=== PATIENT | female | born 1950 | race Caucasian/White ===

== ENCOUNTER → 2016-08-13 | Outpatient (CLI) | payer OTHER, MEDICARE ==
--- NOTE | 2016-08-13 18:29 | DX ---
DEXA Bone Mineral Densitometry Clinical Indications: Osteoporosis screening in a postmenopausal female . Followup low bone density. Comparison: December 2013, December 2011, May 2009 Technique: Bone Mineral Densitometry (BMD) by Dual Energy X-Ray Absorptiometry (DEXA) was performed u tilizing the [employer] scanner. The lumbar spine was evaluated in the AP projection. The bilate ral hips and left forearm were evaluated in the AP projection. Vertebral fracture assessment was also performed. AP Lumbar Spine: The L1, L2, L3 vertebral bodies were evaluated. BMD: 1.054 gm/cm2 T-score: -1.0 SD Z-score: 0.6 SD Significant decrease in bone density of 2.8% compared to the most recent prior study. AP Left Hip: Femoral neck. BMD: 0.681 gm/cm2 T-score: -2.6 SD Z-score: -1.0 SD There has been a significant decrease in bone density of 10.9% compared to the most recent study. AP Right Hip: Femoral neck. BMD: 0.743 gm/cm2 T-score: -2.1 SD Z-score: -0.5 SD A significant decrease in total bone density of 6.5% compared to the most recent previous study. AP Left Forearm, 08/04: BMD: 0.726 gm/cm2 T-score: -1.7 SD Z-score: -0.1 SD Not significantly changed. Vertebral Fracture Assessment: No significant fracture deformity. Conclusion: Considering the lowest measured site, the patient's bone density is low; osteoporotic (T score < -2.5). Significant decrease in bone density are seen involving the spine as well as both hips . The ten year risk for any major osteoporotic fracture is 14.4% and for a hip fracture is 3.4%. Any bone loss in this patient is probably related to aging or estrogen deficiency. Recommendations: To prevent osteoporosis and to promote bone density, consider the following recommen dations: 1. Pursue a regular regimen of weightbearing and muscle strengthening exercises. 2. Optimize daily calcium intake. 3. Check serum hydroxy vitamin D3 (normal >30ng/ml). 4. Ensure daily intake of vitamin D is 800 international units. 5. Consider follow-up DEXA scan in two years to assess the rate of bone loss in this patient. If sig nificant bone loss continues, initiation of therapy could be considered. 6. Consider excluding common secondary causes of bone loss.
== END ==
LOC: FIMAGING 13:49
PROVIDERS: ATTEND Internal Medicine Endocrinology, Diabetes & Metabolism
DX: Z13.820 Encounter for screening for osteoporosis (principal); M81.0 Age-related osteoporosis without current pathological fracture; M85.80 Other specified disorders of bone density and structure, unspecified site; Z78.0 Asymptomatic menopausal state

== ENCOUNTER 2017-04-07 07:49 | Inpatient (IN) | payer OTHER, MEDICARE ==
--- NOTE | 2017-03-15 10:15 | GHP ---
[f rep st] PREOP HISTORY AND PHYSICAL DATE OF ADMISSION: The patient will be an a.m. admission for surgery on April 07, 2017. PROBLEM: Left hip arthritis. HISTORY OF PRESENT ILLNESS: The patient is a 66-year-old woman admitted for a left total hip arthroplasty. She developed left thigh and hip pain in November of 2016. It is painful walking. Hip flexion is painful. She is having daily pain and night pain. Her activities are limited. She has been using ibuprofen every day. She has trouble putting her shoes and socks on the left foot. She is admitted for a left total hip arthroplasty. PAST MEDICAL HISTORY: A few years ago she had her parathyroid glands removed. No history of heart disease, stents, DVT, hepatitis, or sleep apnea. CURRENT MEDICATIONS: None. DRUG ALLERGIES: She is allergic to morphine and reacts with a rash. She also has a strong allergy to shellfish. Metal allergy: No. Latex allergy: Yes. SOCIAL HISTORY: The patient is . She is retired. She does not smoke cigarettes, and occasionally drinks wine. She does not have any other total joint replacements. No history of previous MRSA staph infections. FAMILY HISTORY: Unknown. PHYSICAL EXAMINATION: GENERAL: She is a healthy-appearing woman. Height 4 feet 11-1/4 inches. Weight 130 pounds. BMI 26. EYES: The conjunctivae and sclerae are clear. Pupils are round and reactive. MOUTH: Good oral hygiene. No loose teeth. CHEST: Clear. HEART: Regular rhythm, no murmurs. EXTREMITIES: Pertinent findings are limited to her left hip. She has full hip extension and 100 degrees of flexion. External rotation 20 degrees. Internal rotation 0 degrees. Abduction 20 degrees. IMAGING: Her films show degenerative arthritis of her left hip. Her right hip looks normal. IMPRESSION ON ADMISSION: Left hip advanced degenerative arthritis. PLAN: She will undergo a left total hip arthroplasty. The surgery has been described to her, including the risks, complications, expectations, and recovery time. I have specifically discussed with her the risk of dislocation, leg length inequality, infection, and sciatic nerve injury. She understands there is a small possibility of future revision surgery. All her questions have been answered, and she consents to surgery. She does not want to use oxycodone. I am not going to use the Betadine irrigation. I will not use the preoperative OxyContin. Copy requested to: GUILLERMO Hall #: [id number]/MODL MTDD
[~2017-04-07 07:49] MED LIST: ROPIVACAINE 0.2% 80 MG, EPINEPHrine 0.2 MG, KETOROLAC TROMETHAMINE 30 MG in BAG 0 ML IU ONE; TRANEXAMIC ACID 1 MG in NS 100 ML IV ONE; TRANEXAMIC ACID 1,200 MG in NS 100 ML IV ONE
[2017-04-07] MEDS ORDERED: ceFAZolin 1 GM/5 ML SYR ONE (08:02)
[2017-04-07] MEDS ORDERED: DEXAMETHASONE 4 MG/ML VIAL IVP ONE (08:13)
[2017-04-07] MEDS ORDERED: FAMOTIDINE 20 MG TAB PO ONE (08:13)
[2017-04-07] MEDS ORDERED: ceFAZolin 2 GM/DEXTROSE 100 ML IV ONE (08:13)
[2017-04-07] MEDS ORDERED: ACETAMINOPHEN 325 MG TAB PO ONE (08:13)
[2017-04-07] MEDS ORDERED: LR 1,000 ML IV ONE (08:14)
--- NOTE | 2017-04-07 08:54 | PDHPUP ---
History & Physical Update H&P update statement: This history and physical update is based on an assessment of the patient which was completed after admission or registration (within 24 hours), but prior to the surgery/procedure. H&P update: H&P reviewed & patient examined, no change in patient's condition since H&P completed
[2017-04-07] MEDS ORDERED: MIDAZOLAM 2 MG/2 ML VIAL IVP ONE (09:11)
--- NOTE | 2017-04-07 09:11 | PDANEPAE ---
ANE History of Present Illness 66 yo for jesse h/o HTN off meds now CAD by scan ANE Past Medical History - Cardiovascular History Hx Hypertension: No Hx Arrhythmias: No Hx Chest Pain: No Hx Coronary Artery / Peripheral Vascular Disease: No Hx CHF / Valvular Disease: No Hx Palpitations: No - Pulmonary History Hx Oxygen in Use at Home: No Hx Sleep Apnea: No Sleep Apnea Screening Result - Last Documented: Negative - Neurologic History Hx Cerebrovascular Accident: No Hx Seizures: No Hx Dementia: No - Endocrine History Hx Diabetes: No - Renal History Hx Renal Disorders: No - Liver History Hx Hepatic Disorders: No - Neurological & Psychiatric Hx Hx Neurological and Psychiatric Disorders: No - Cancer History Hx Cancer: Yes Cancer History Comment: squamous cell removal - Congenital Disorder History Hx Congenital Disorders: No - GI History Hx Gastrointestinal Disorders: No - Chronic Pain History Chronic Pain: No - Surgical History Prior Surgeries: hyperparathyroid removal 2012 ANE Review of Systems Review of Systems: - Exercise capacity METS (RN): 4 METS ANE Patient History - Allergies Allergies/Adverse Reactions: lidocaine Allergy (Intermediate, Verified 06/03/12 11:35) SITE RASH morphine Allergy (Intermediate, Verified 06/03/12 11:35) RED RASH/ ITCHING latex Allergy (Mild, Verified 06/03/12 11:35) Rash ALL VACCINES Allergy (Severe, Uncoded 06/03/12 11:35) THROAT CLOSES/THROATA AND MOUTH ITCHING/HIVES CAT Allergy (Severe, Uncoded 06/03/12 11:35) TROUBLE BREATHING SHELL FISH Allergy (Severe, Uncoded 06/03/12 11:35) Anaphylaxis NOVACAINE Allergy (Intermediate, Uncoded 06/03/12 11:35) SITE RASH ENVIRONMENTAL Allergy (Mild, Uncoded 06/03/12 11:35) NASAL CONGESTION HAND WIPES Allergy (Mild, Uncoded 06/03/12 11:35) Rash SENSITIVE TO PERFUMES AND PERFUMES Allergy (Mild, Uncoded 06/03/12 11:35) EYES ITCHY - Home Medications Home medications: home medication list seen and reviewed Home Medications: Aspirin EC [Aspirin EC 81 mg (*)] 81 mg PO DAILY 03/28/17 [Last Taken 03/31/17] CALCIUM CARBONATE [CALCIUM] 600 mg PO DAILY 03/28/17 [Last Taken 03/31/17] Cholecalciferol (Vitamin D3) [Vitamin D3] 5,000 unit PO DAILY 03/28/17 [Last Taken 03/31/17] Cyanocobalamin [Vitamin B12 (*)] 1,000 mcg PO DAILY 03/28/17 [Last Taken ] Herbals/Supplements -Info Only 1 ea PO DAILY 03/28/17 [Last Taken 03/31/17] Ketotifen Fumarate [Zaditor] 1 drop OP DAILY PRN 03/28/17 [Last Taken 04/07/17] Loratadine [Claritin 10 mg] 5 mg PO DAILY PRN 03/28/17 [Last Taken 03/17/17] MAGNESIUM [Magnesium Oxide 200 mg] 1 tab PO DAILY 03/28/17 [Last Taken 03/31/17] - NPO status NPO Since - Liquids (Date): 04/07/17 NPO Since - Liquids (Time): 06:00 NPO Since - Solids (Date): 04/06/17 NPO Since - Solids (Time): 20:00 - Smoking Hx Smoking Status: Former smoker - Family Anes Hx Family Hx Anesthesia Complications: none ANE Labs/Vital Signs - Vital Signs Blood Pressure: 164/100 Heart Rate: 86 Respiratory Rate: 16 O2 Sat (%): 96 Height: 4 ft 11 in Weight: 58.967 kg ANE Physical Exam - Airway Neck exam: FROM Mallampati Score: Class 2 - Pulmonary Pulmonary: no respiratory distress - Cardiovascular Cardiovascular: regular rate and rhythym - ASA Status ASA Status: II ANE Anesthesia Plan Anesthesia Plan: spinal
[2017-04-07] MEDS ORDERED: POVIDONE-IODINE 20 ML in SODIUM CL IRRIG SOLUTION 500 ML IRR ONE (09:30)
[2017-04-07] MEDS ORDERED: PROPOFOL/EMULSION 500 MG/50 ML BOTTLE IV ONE ×2 (09:35)
[2017-04-07] MEDS ORDERED: fentaNYL 100 MCG/2 ML INJ ONE (09:36)
[2017-04-07] MEDS ORDERED: PROPOFOL 200 MG/20 ML VIAL ONE (10:41)
[2017-04-07] MEDS ORDERED: POLYETHYLENE GLYCOL 3350 17 GM PKT PO PRN (11:02)
[2017-04-07] MEDS ORDERED: oxyCODONE IR 5 MG TAB PO PRN (11:02)
[2017-04-07] MEDS ORDERED: TEMAZEPAM 15 MG CAP PO PRN (11:02)
[2017-04-07] MEDS ORDERED: DIPHENOXYLATE/ATROPINE LOMOTIL 1 TAB PO PRN (11:02)
[2017-04-07] MEDS ORDERED: CYCLOBENZAPRINE 10 MG TAB PO PRN (11:02)
[2017-04-07] MEDS ORDERED: traMADol 50 MG TAB PO PRN (11:02)
[2017-04-07] MEDS ORDERED: MAGNESIUM HYDROXIDE 30 ML UDCUP PO PRN (11:02)
[2017-04-07] MEDS ORDERED: PHARMACY PAIN CONSULT 1 EA MISC PRN (11:02)
[2017-04-07] MEDS ORDERED: diphenhydrAMINE 25 MG CAP PO PRN (11:02)
[2017-04-07] MEDS ORDERED: LACTULOSE 20 GM/30 ML UDCUP PO PRN (11:02)
[2017-04-07] MEDS ORDERED: BISACODYL 10 MG SUPP PR PRN (11:02)
--- NOTE | 2017-04-07 11:02 | POSTOPPROG ---
Post Op Note Date of Operation: 04/07/17 Surgeon: Sandro Hernandez Tuber Helper: Patricio Byrd/Coreen Chin Anesthesiologist: Cierra Anesthesia: IV Sedation, Spinal Post-op Diagnosis: Left hip degenerative arthritis. Procedure: Left total hip arthroplasty. Inf/Abcess present in the surg proc area at time of surgery?: No EBL: 100-500
[2017-04-07] MEDS ORDERED: fentaNYL 100 MCG/2 ML INJ IVP PRN (11:04)
[2017-04-07] MEDS ORDERED: Ketotifen Fumarate [Zaditor] 1 DROP OP PRN (11:04)
[2017-04-07] MEDS ORDERED: NALOXONE HCL 0.4 MG/ML INJ IVP PRN (11:04)
[2017-04-07] MEDS ORDERED: LORATADINE 5 MG PO PRN (11:04)
[2017-04-07] MEDS ORDERED: ONDANSETRON 4 MG/2 ML VIAL IVP PRN (11:04)
[2017-04-07] MEDS ORDERED: HYDROmorphONE/DILAUDID 1 MG/ML SYR IVP PRN (11:04)
--- NOTE | 2017-04-07 11:06 | POSTANESTH ---
Post Anesthetic Evaluation Cardiovascular Status: Normal, Stable Respiratory Status: Normal, Stable Level of Consciousness/Mental Status: Can Participate in Eval Pain Control: Adequate, Prn Tx Ordered Nausea/Vomiting Control: Adequate, Prn Tx Ordered Complications Possibly Related to Anesthesia: None Noted
[2017-04-07] MEDS ORDERED: TRANEXAMIC ACID 650 MG TAB PO SCH (11:15)
[2017-04-07] MEDS ORDERED: LR 1,000 ML IV SCH (11:30)
--- NOTE | 2017-04-07 12:16 | GOP ---
[f rep st] OPERATIVE REPORT DATE OF OPERATION: 04/07/2017 SURGEON: Sandro Hernandez MD AIR QUALITY INSTRUMENT SPECIALIST: Patricio Byrd CFA, and Coreen Chin RN. ANESTHESIA: Marcaine spinal and IV sedation. ANESTHESIOLOGIST: Jessica Norton MD. PREOPERATIVE DIAGNOSIS: Left hip degenerative arthritis. POSTOPERATIVE DIAGNOSIS: Left hip degenerative arthritis. PROCEDURE PERFORMED: Left total hip arthroplasty, ceramic femoral head on highly cross-linked polyet hylene cup liner. FINDINGS: DESCRIPTION OF PROCEDURE: The patient was given 2 g of IV Ancef preoperatively within 60 minutes of surgery. She also received IV tranexamic acid at a dose of 20 mg/kg. She was treated with latex all ergy precautions. She was placed on the operating room table and given spinal anesthesia with Marcai ne by Dr. Norton. She was then placed supine and given IV sedation. A Rodriguez catheter was not used . She wore a JEANA stocking and SCD on the nonoperative leg. She was rolled to the right lateral decu bitus position. The position was secured with the pegboard table attachment. An axillary roll was u sed, and all pressure points were carefully padded. I was careful to lock her pelvis in a rigid vert ical position. Her perineum was isolated with plastic adhesive drapes. Her left hip and left lower extremity were prepped with ChloraPrep. They were draped free using sterile sheets, stockinette, and Vi-Drape. She had an iodine allergy, and so I did not use the customary Ioban plastic drape. The World Health Organization time-out was performed to verify the correct surgical side and the [facility] patient identity. The Maxwell time-out was also performed. I made a 4-5 inch straight oblique posterolateral hip skin incision. The subcutaneous tissues were s harply divided, and hemostasis was obtained using electrocautery. The fascia gisselle was identified and split at its proximal end along the axis of its fibers. I then curved posteriorly and proximally an d split the fascia of gluteus viet and bluntly split the muscle fibers in line with their orientat ion. The Charnley self-retaining retractor was inserted. Her sciatic nerve was located, partially e xposed, and protected throughout the procedure. The external rotators and the posterior hip capsule were divided as separate layers at the base of the femoral neck, tagged, and reflected posteriorly. A smooth 1/8-inch Steinmann pin was inserted vertically into the ilium superior to the acetabulum. A 1/8-inch drill bit was inserted vertically into the greater trochanter and parallel to the first pin . The distance between the 2 was measured for leg length reference. Her femoral head was dislocated posteriorly. Severe degenerative changes were present on the femoral head. The femoral neck was os teotomized at the appropriate level and inclination. I was careful to preserve all the posterior capsule and most of the anterior capsule. The remnant of the damaged labrum was excised. I prepared the femur first. This allowed me to account development specialist the amount of natural femoral neck anteversion. This, in turn, allowed me to later determine the correct amount of cup anteversion. She had approx imately 10 or 12 degrees of natural femoral neck anteversion. The canal was opened laterally with a box chisel. I hand broached sequentially up to size 4 using the [place] Accolade II stem. The size 4 broach was used as a trial stem. I was careful to lateralize adequately. Appropriate retractors were inserted to expose the acetabulum. The acetabulum was reamed sequentiall y up to 49 mm. I selected a 50 mm Cristian Tritanium cluster hole hemispherical shell. This was paulo ed securely into place in the proper degree of inclination and anteversion. I used the transverse ac etabular ligament and other acetabular bony landmarks to help me properly orient the cup. I inserted a single 30 mm supplemental fixation screw through the shell. I also inserted a screw-in metal dome hole plug. I performed a series of trial reductions to determine length and stability. I concluded that the siz e 4 high offset stem with a 0 mm neck length, a 32 mm head, and a 0-degree trial liner gave me the pr oper combination of appropriate length and good anterior and posterior stability. The 0 degree [place] X3 highly cross-linked polyethylene liner was inserted and tapped securely into place. The Cristian Accolade II stem in a size 4 with high offset was inserted press-fit and was a go od tight fit. I did 1 final trial reduction and confirmed that the 0 neck length with the 32 mm head was the proper combination. I selected the Cristian Biolox Delta ceramic head with an outside diamet er of 32 mm and a 0 neck length. This was tapped securely onto the clean trunnion. The acetabulum w as irrigated, cleaned, and the hip was reduced one final time. She had excellent anterior and optical glass silverer ior stability and appropriate length. The patient was allergic to lidocaine and Xylocaine. I did not use any joint anesthetic cocktail. T he joint was thoroughly irrigated one final time with saline. I did not use the customary Betadine i rrigation solution because of her iodine allergy. Her sciatic nerve was reinspected and looked unhar med. The external rotators and the posterior hip capsule were repaired in separate layers with #2 FiberWir e sutures through drill holes in the greater trochanter. This provided a very strong posterior capsu lar and external rotator repair. Her fascia gisselle was closed first with several interrupted figure-of -eight #2 FiberWire sutures followed by a running #2 barbed Ethicon StrataFix PDO suture. The subcut aneous tissues were closed with a running 0 barbed Ethicon StrataFix Monoderm suture. The skin was c losed with a running 3-0 barbed Ethicon StrataFix Monoderm subcuticular suture. The skin edges were reapproximated and sealed with Dermabond glue. The wound was covered with a strip of Telfa, and ever ything was held in place with a piece of clear plastic Tegaderm. A long-leg JEANA stocking and SCD were applied to her left lower extremity. She wore a stocking and SC D on the opposite leg during the procedure. An abduction pillow was placed between her knees. She w as awakened from anesthesia and rolled to the supine position on her [facility]. She was taken to PACU in satisfactory condition. There were no recognized intraoperative complications. The estimated blood loss was about 200 mL. The sponge and needle count were correct on 2 occasions. I used a Cristian Tritanium hemispherical press-fit cluster hole acetabular shell with an outside diam eter of 50 mm. The liner was a [place] X3 0-degree highly cross-linked liner with an inside diameter of 32 mm. The femoral component was a high offset [place] Accolade II stem in size 4 and press fit. The femoral head was a [employer] [place] Biolox Delta ceramic head with a 0 neck length and a 32 mm outside d iameter. Patricio Byrd and Coreen Chin acted as surgical assistants. Their assistance was a medical necessi ty for safe completion of the procedure. Copy requested to: Lisseth Solomon /[id number]/MODL
[2017-04-07] MEDS: ACETAMINOPHEN 325 MG TAB PO SCH ×4 (14:13→23:55)
[2017-04-07] MEDS: TRANEXAMIC ACID 650 MG TAB PO SCH ×2 (14:14→22:20)
[2017-04-07] MEDS: ceFAZolin 2 GM/DEXTROSE 100 ML IV SCH ×2 (17:17→22:21)
[2017-04-07] MEDS: ASPIRIN 325 MG TAB PO SCH (22:20)
[2017-04-07] MEDS: SENNOSIDES/DOCUSATE SODIUM TAB PO SCH (22:22)
[2017-04-07] MEDS: FAMOTIDINE 20 MG TAB PO SCH (22:22)
[2017-04-08 03:03] VITALS: O2SAT 94
[2017-04-08] MEDS: TRANEXAMIC ACID 650 MG TAB PO SCH (05:17)
[2017-04-08] MEDS: ACETAMINOPHEN 325 MG TAB PO SCH ×2 (05:18→12:13)
[2017-04-08 05:59] LABS: HEMOGLOBIN 10.5 g/dL (12.6-16.3)
--- NOTE | 2017-04-08 08:12 | SOAPPROG ---
SOAP Progress Note Assessment/Plan: Assessment: Patient is doing well POD 1 s/p L SALEEM. Pain management: pain is well controlled on oral pain meds. VTE ppx: recommend aspirin daily for 3 weeks, cont JEANA and SCDs Anemia: level is expected initially postop. Asymptomatic. Continue to monitor D/c planning: d/c to home today pending release from PT Plan: 04/08/17 08:11 Objective: Vital Signs Temp Pulse Resp BP Pulse Ox 37.0 C 83 18 127/68 H 94 04/08/17 07:23 04/08/17 07:23 04/08/17 07:23 04/08/17 07:23 04/08/17 07:23 Laboratory Results 04/08/17 05:45 04/07/17 04/08/17 04/09/17 05:59 05:59 05:59 Intake Total 2145 Output Total 825 Balance 1320 ICD10 Worksheet Patient Problems: Problems Problem Status Onset Osteoarthritis of left hip Acute
[2017-04-08] MEDS: ASPIRIN 325 MG TAB PO SCH (08:20)
[2017-04-08] MEDS: FAMOTIDINE 20 MG TAB PO SCH (08:30)
[2017-04-08] MEDS: SENNOSIDES/DOCUSATE SODIUM TAB PO SCH (08:30)
--- NOTE | 2017-04-08 08:49 | GDS ---
[f rep st] DISCHARGE SUMMARY ADMISSION DIAGNOSIS: Severe left hip osteoarthritis. DISCHARGE DIAGNOSIS: Severe left hip osteoarthritis. OPERATION PERFORMED: Left total hip arthroplasty, posterior approach. POSTOPERATIVE COMPLICATIONS: None. CONDITION ON DISCHARGE: Improved. DESCRIPTION OF HOSPITAL COURSE: The patient was admitted to the hospital on the day of surgery. Her admission CBC was normal. The same day, under a combination of IV sedation and Marcaine spinal, she underwent a left total hip arthroplasty. The patient was treated with multimodal DVT prophylaxis, including full-strength aspirin, T.E.D. stoc kings, and SCDs. A Rodriguez catheter was not used. On the first postoperative day, her hemoglobin and hematocrit were 10.5 and 31.0. She did not require any transfusion. She was seen by Physical Therap y, and made good progress with hip range of motion exercises and ambulation. By the time of discharge, the patient was independent with her walker and afebrile. DISPOSITION: The patient is discharged to her home. She will go directly to outpatient physical the rapy in 10 to 14 days. She has a prescription for oxycodone and tramadol for pain control. Zofran f or nausea. Full-strength aspirin x21 days. T.E.D. stockings x2 weeks. She has a followup appointme nt in the office in 3 weeks. She is to call the office sooner if she has any problems. Copy requested to: PCP /[id number]/MODL
[2017-04-08] MEDS ORDERED: MAGNESIUM OXIDE 400 MG TAB PO SCH (09:00)
[2017-04-08] MEDS ORDERED: NON-FORMULARY NEW DRUG (Cholecalciferol (Vitamin D3) [Vitamin D3] 5,000 UNIT) PO SCH (09:00)
[2017-04-08] MEDS ORDERED: CALCIUM CARBONATE 600 MG PO SCH (09:00)
[2017-04-08] MEDS ORDERED: CALCIUM CARBONATE 500 MG TAB PO SCH (09:00)
[2017-04-08] MEDS ORDERED: CYANOCOBALAMIN 1000 MCG PO SCH (09:00)
[2017-04-08] MEDS ORDERED: CHOLECALCIFEROL VIT D3 1,000 UNITS TAB PO SCH (09:00)
[2017-04-08] MEDS ORDERED: FERROUS SULFATE 140 MG TAB.ER PO SCH (09:00)
[2017-04-08] MEDS ORDERED: CYANO/VITAMIN B12 1000 MCG TAB PO SCH (09:00)
[2017-04-08] MEDS ORDERED: CETIRIZINE 10 MG TAB PO SCH (09:00)
[2017-04-08] MEDS ORDERED: NON-FORMULARY NEW DRUG (Magnesium [Magnesium Oxide 200 Mg] 1 TAB) PO SCH (09:00)
[2017-04-08 11:16] VITALS: BP 134/81; PULSE 86; RESP 16; TEMP 98.9
--- NOTE | 2017-04-11 17:05 | ASMTCMCOM ---
CM Note CM Note Notes: Therapies clear pt for home. Pt medically stable for d/c, no CM d/c needs identified. Date Signed: 04/08/2017 03:13 PM Electronically Signed By:Rachel Crowell
--- NOTE | 2017-04-11 17:06 | ASDISCHSUM ---
Discharge Information Plan Status:Home with No Needs Medically Cleared to Leave: Discharge Date:04/08/2017 12:17 PM CM D/C Disposition:Home, Routine, Self-Care ADT D/C Disposition:Home, Routine, Self-Care Projected Discharge Date:04/08/2017 12:17 PM Transportation at D/C: Discharge Delay Reason: Follow-Up Date:04/08/2017 12:17 PM Discharge Slot: Final Diagnosis: Placement Information Patient Contact Information Contact Name:SHELBY Relationship: Address:[address] City:[place] Alternate Phone: [facility]/Zip Code:[place] [address] Email: Financial Information Financial Class:MC Primary Plan Desc:MEDICARE INPATIENT Primary Plan Number:[id number] Secondary Plan Desc:[employer]/MDR SUPPLEMENT Secondary Plan Number:[id number] Assessment Information Intervention Information
== END 2017-04-08 12:17 | disposition home or self-care (01) | DRG 470 ==
LOC: F3N 07:49
PROVIDERS: ADMIT Orthopaedic Surgery; ATTEND Orthopaedic Surgery
PROC: 0SRB04Z Replacement of Left Hip Joint with Ceramic on Polyethylene Synthetic Substitute, Open Approach (ICD-10-PCS; principal; 2017-04-07 09:45)
DX: M16.12 Unilateral primary osteoarthritis, left hip (principal)
CPT/HCPCS: 97110-GP; 97116-GP; 97161-GP; 97165-GO; C1713; G8978-GP-CI; G8979-GP-CI; G8980-GP-CI; G8987-GO-CI; G8988-GO-CI; G8989-GO-CI; J0690; J2250; J2704; J3010